=== PATIENT | female | born 1935 | race Caucasian/White ===

== ENCOUNTER 2017-02-26 14:16 | Inpatient (IN) | payer MEDICARE ==
[~2017-02-26] VITALS: Ht 167.6 cm; Wt 63.6 kg
[~2017-02-26 14:16] MED LIST: CLON0.5T4 PO; CLOP75TA35 PO; FENT-92 TD; FLUT16SP26 NAS; GABA600T2 PO; LISI2.5T2 PO; MONT10TA24 PO; NEPA1.7D LEFTEYE; OMEG1CAP2 PO; OMEP40CA37 PO; OXYC-145 PO; SIMV20TA5 PO
[2017-02-26 14:54] LABS: BASOPHILS % (AUTO) 0.7 % (0-1); EOSINOPHILS # (AUTO) 0.2 X10'3 (0-0.9); EOSINOPHILS % (AUTO) 4.1 % (0-6); HEMATOCRIT 30.7 % (35.0-45.0); LYMPHOCYTES # (AUTO) 1.3 X10'3 (1.1-4.8); LYMPHOCYTES % (AUTO) 22.3 % (21-51); MEAN CORPUSCULAR HEMOGLOBIN 30.3 PG (27.0-31.0); MEAN CORPUSCULAR HGB CONC 32.7 % (33.0-36.5); MEAN CORPUSCULAR VOLUME 92.5 FL (78-98); MEAN PLATELET VOLUME 6.9 FL (7.4-10.4); MONOCYTES # (AUTO) 0.5 X10'3 (0-0.9); MONOCYTES % (AUTO) 8.9 % (2-12); NEUTROPHILS # (AUTO) 3.8 X10'3 (1.8-7.7); PLATELET COUNT 362 X10'3 (140-440); RED BLOOD COUNT 3.32 X10'6 (4.20-5.60); RED CELL DISTRIBUTION WIDTH 15.1 % (11.5-14.5)
[2017-02-26 15:11] LABS: INR 0.9 INR; PARTIAL THROMBOPLASTIN TIME 25 SECONDS (22-32); PROTHROMBIN TIME 9.7 SECONDS (9.0-12.0)
[2017-02-26 15:19] LABS: ALANINE AMINOTRANSFERASE 25 U/L (12-78); ALBUMIN 3.7 G/DL (3.4-5.0); ALKALINE PHOSPHATASE 83 IU/L (46-116); ANION GAP 9 (8-16); ASPARTATE AMINO TRANSFERASE 16 U/L (10-37); BILIRUBIN,TOTAL 0.2 MG/DL (0.1-1.0); BLOOD UREA NITROGEN 11 MG/DL (7-18); BUN/CREATININE RATIO 10.9 (6.6-38.0); CALCIUM 9.3 MG/DL (8.5-10.1); CHLORIDE 104 MMOL/L (99-107); CREATININE 1.01 MG/DL (0.40-0.90); GLUCOSE 122 MG/DL (70-104); POTASSIUM 4.2 MMOL/L (3.5-5.1); SODIUM 141 MMOL/L (135-145); TOTAL CARBON DIOXIDE 28.3 MMOL/L (24-32); TOTAL PROTEIN 7.4 G/DL (6.4-8.2); eGFR 52 ML/MIN
[2017-02-26] MEDS ORDERED: aspirin 81mg tab.chew PO ONE (15:30)
[2017-02-26] MEDS ORDERED: ipratropium/albuterol 3ml nebule NEB ONE (15:30)
[2017-02-26] MEDS ORDERED: dexamethasone 4mg tablet PO ONE (15:30)
[2017-02-26] MEDS ORDERED: nitroGLYCERIN 0.4mg SUBLingual tab SL PRN ×2 (15:30→18:45)
[2017-02-26] MEDS ORDERED: mag hydrox/Alum hydrox/simeth 30ml oral suspension PO PRN (16:10)
[2017-02-26] MEDS ORDERED: ondansetron/PF 4mg/2ml inj IV PRN (16:10)
[2017-02-26] MEDS ORDERED: magnesium hydroxide 30ml (MOM) UD suspension PO PRN (16:10)
[2017-02-26] MEDS ORDERED: acetaminophen 325mg tablet PO PRN (16:10)
[2017-02-26] MEDS ORDERED: benzonatate 100mg capsule PO PRN (16:15)
[2017-02-26] MEDS: levoFLOXACIN-Levaquin 750MG/D5 150 ML IV SCH (17:38)
[2017-02-26] MEDS ORDERED: clonazePAM 0.5mg tablet PO PRN (18:20)
[2017-02-26] MEDS ORDERED: enoxaparin 60mg/0.6ml syringe SUBCUT ONE (18:20)
[2017-02-26 18:25] VITALS: BP 121/68
[2017-02-26] MEDS ORDERED: metoprolol tartrate 1mg/ml inj IV PRN (18:45)
[2017-02-26 19:54] LABS: CLARITY,URINE Clear (Clear); COLOR,URINE Yellow (Yellow); GLUCOSE, URINE Negative (Neg); KETONES,URINE Negative (Neg); LEUKOCYTE ESTERASE ,URINE Negative (Neg); NITRITES, URINE Negative (Neg); OCCULT BLOOD,URINE Negative (Neg); PH,URINE 5.5 (4.8-8.0); PROTEIN,URINE Negative (Neg); UROBILINOGEN,URINE 0.2 E.U/dL (0.2-1.0)
[2017-02-26 19:57] LABS: UA COLLECTION TYPE VOIDED
[2017-02-26] MEDS ORDERED: diphenhydrAMINE 25mg capsule PO PRN (20:00)
[2017-02-26] MEDS ORDERED: heparin, porcine 5000 units/ml vial SQ SCH (20:00)
[2017-02-26] MEDS: gabapentin 300mg capsule PO SCH (20:41)
[2017-02-26] MEDS: methylPREDNISolone sod succ 125mg/2ml vial IV SCH (20:42)
[2017-02-26] MEDS ORDERED: atorvastatin 10mg tablet PO SCH (21:00)
[2017-02-26 22:00] VITALS: BP 118/57
[2017-02-26] MEDS: normal saline 1000ml 1,000 ML IV SCH (23:10)
[2017-02-27] VITALS (11 sets, daily range): BP systolic 114–162; BP diastolic 51–93
[2017-02-27] MEDS: methylPREDNISolone sod succ 125mg/2ml vial IV SCH ×2 (01:53→07:18)
[2017-02-27 02:34] LABS: BASOPHILS % (AUTO) 0.6 % (0-1); EOSINOPHILS % (AUTO) 0.7 % (0-6); HEMATOCRIT 29.5 % (35.0-45.0); HEMOGLOBIN 9.6 g/dl (12.0-16.0); LYMPHOCYTES % (AUTO) 26.3 % (21-51); MEAN CORPUSCULAR HEMOGLOBIN 30.3 PG (27.0-31.0); MEAN CORPUSCULAR HGB CONC 32.5 % (33.0-36.5); MEAN CORPUSCULAR VOLUME 93.1 FL (78-98); MEAN PLATELET VOLUME 7.2 FL (7.4-10.4); MONOCYTES % (AUTO) 0.8 % (2-12); NEUTROPHILS # (AUTO) 2.7 X10'3 (1.8-7.7); NEUTROPHILS % (AUTO) 71.6 % (42-75); PLATELET COUNT 315 X10'3 (140-440); RED BLOOD COUNT 3.17 X10'6 (4.20-5.60); RED CELL DISTRIBUTION WIDTH 14.8 % (11.5-14.5); WHITE BLOOD COUNT 3.8 X10'3 (4.5-11.0)
[2017-02-27 02:54] LABS: ALBUMIN 3.3 G/DL (3.4-5.0); ANION GAP 7 (8-16); BLOOD UREA NITROGEN 11 MG/DL (7-18); BUN/CREATININE RATIO 12.6 (6.6-38.0); CALCIUM 8.6 MG/DL (8.5-10.1); CHLORIDE 104 MMOL/L (99-107); CREATININE 0.87 MG/DL (0.40-0.90); GLUCOSE 161 MG/DL (70-104); POTASSIUM 4.4 MMOL/L (3.5-5.1); SODIUM 138 MMOL/L (135-145); TOTAL CARBON DIOXIDE 27.5 MMOL/L (24-32); eGFR 62 ML/MIN
[2017-02-27] MEDS ORDERED: aminophylline 250mg/10ml inj. IV PRN (07:00)
[2017-02-27] MEDS ORDERED: regadenoson 0.4mg/5ml syringe IV ONE ×2 (07:00→10:09)
[2017-02-27] MEDS: montelukast 10mg tablet PO SCH ×2 (07:18→07:41)
[2017-02-27] MEDS: clopidogrel 75mg tablet PO SCH ×2 (07:18→07:40)
[2017-02-27] MEDS: levoFLOXACIN-Levaquin 750MG/D5 150 ML IV SCH (07:19)
[2017-02-27] MEDS: gabapentin 300mg capsule PO SCH (07:19)
[2017-02-27] MEDS ORDERED: OMEGA PO SCH (08:00)
[2017-02-27] MEDS ORDERED: fluticasone nasal spray 16GM bottle NS SCH (08:00)
[2017-02-27] MEDS ORDERED: NEPAFENAC LEFTEYE SCH (08:00)
[2017-02-27] MEDS ORDERED: pantoprazole 40mg Tablet.DR PO SCH (08:00)
[2017-02-27] MEDS ORDERED: FATTY ACIDS PO SCH (08:00)
[2017-02-27] MEDS ORDERED: FISH OIL PO SCH (08:00)
[2017-02-27] MEDS ORDERED: lisinopril 2.5mg tablet PO SCH (08:00)
[2017-02-27] MEDS ORDERED: aminophylline inj. 10 ML IV ONE (10:09)
[2017-02-27] MEDS ORDERED: morphine 5 MG/ML injection IV PRN (10:40)
[2017-02-27] MEDS ORDERED: iohexol 300mg/ml 100ml inj. ONE (11:08)
[2017-02-27] MEDS: normal saline 1000ml 1,000 ML IV SCH (11:58)
[2017-02-28] MEDS ORDERED: FENTANYL 75 MCG TD SCH (08:00)
[2017-02-28] MEDS ORDERED: fentaNYL 75 MCG/hour patch.TD72 TD SCH (08:00)
[2017-03-01 11:13] LABS: AFP,SERUM, TUMOR MARKER 2.8 ng/mL (0.0-8.3); CARCINOEMBRYONIC ANTIGEN 6.7 ng/mL (0.0-4.7)
== END 2017-02-27 14:14 | disposition home or self-care (01) | DRG 191 ==
LOC: ER 14:16 → ED HOLD 16:06 → ORTHO 4S 18:15
PROVIDERS: ADMIT Family Medicine; ATTEND Family Medicine
PROC: 4A02XM4 Measurement of Cardiac Total Activity, External Approach (ICD-10-PCS; principal; 2017-02-27)
PROC: 3E073KZ Introduction of Other Diagnostic Substance into Coronary Artery, Percutaneous Approach (ICD-10-PCS; 2017-02-27)
PROC: BW201ZZ Computerized Tomography (CT Scan) of Abdomen using Low Osmolar Contrast (ICD-10-PCS; 2017-02-27)
DX: J44.1 Chronic obstructive pulmonary disease with (acute) exacerbation (principal); M48.55XA Collapsed vertebra, not elsewhere classified, thoracolumbar region, initial encounter for fracture; M41.9 Scoliosis, unspecified; Z99.81 Dependence on supplemental oxygen; K76.89 Other specified diseases of liver; E78.00 Pure hypercholesterolemia, unspecified; E78.5 Hyperlipidemia, unspecified; I10 Essential (primary) hypertension; I25.10 Atherosclerotic heart disease of native coronary artery without angina pectoris; J01.90 Acute sinusitis, unspecified; A08.4 Viral intestinal infection, unspecified; D64.9 Anemia, unspecified; K21.9 Gastro-esophageal reflux disease without esophagitis; F32.9 Major depressive disorder, single episode, unspecified; F41.9 Anxiety disorder, unspecified; K57.90 Diverticulosis of intestine, part unspecified, without perforation or abscess without bleeding; M47.816 Spondylosis without myelopathy or radiculopathy, lumbar region; F17.210 Nicotine dependence, cigarettes, uncomplicated; Z90.710 Acquired absence of both cervix and uterus; Z95.5 Presence of coronary angioplasty implant and graft; Z88.0 Allergy status to penicillin; Z88.5 Allergy status to narcotic agent; Z88.8 Allergy status to other drugs, medicaments and biological substances; Z79.899 Other long term (current) drug therapy
CPT/HCPCS: 36415; 71045; 71250; 74170; 78452; 80048; 80053; 81003; 82103; 82378; 84484; 85025; 85610; 85730; 87070; 87502; 87503; 93017; 93306; 94640; 94760; 99285; A9500; J0280; J1650; J1956; J2270; J2930; J7030; J8540; Q0163; Q9967

== ENCOUNTER 2017-04-02 15:54 | Inpatient (IN) | payer MEDICARE ==
[~2017-04-02] VITALS: Ht 165.1 cm; Wt 65.9 kg
[~2017-04-02 15:54] MED LIST changes: -CLOP75TA35 PO; -MONT10TA24 PO; -OXYC-145 PO
[2017-04-02] MEDS ORDERED: levoFLOXACIN-Levaquin 750MG/D5 150 ML IV ONE (16:10)
[2017-04-02] MEDS ORDERED: normal saline 1000ml 1,000 ML IV ONE ×2 (16:25→16:30)
[2017-04-02 16:37] LABS: BASOPHILS % (AUTO) 0.4 % (0-1); EOSINOPHILS # (AUTO) 0.1 X10'3 (0-0.9); EOSINOPHILS % (AUTO) 1.8 % (0-6); HEMATOCRIT 31.7 % (35.0-45.0); HEMOGLOBIN 10.5 g/dl (12.0-16.0); LYMPHOCYTES # (AUTO) 1.2 X10'3 (1.1-4.8); LYMPHOCYTES % (AUTO) 15.4 % (21-51); MEAN CORPUSCULAR HEMOGLOBIN 28.8 PG (27.0-31.0); MEAN CORPUSCULAR HGB CONC 33.1 % (33.0-36.5); MEAN CORPUSCULAR VOLUME 87.1 FL (78-98); MEAN PLATELET VOLUME 6.5 FL (7.4-10.4); MONOCYTES # (AUTO) 0.7 X10'3 (0-0.9); MONOCYTES % (AUTO) 8.3 % (2-12); NEUTROPHILS % (AUTO) 74.1 % (42-75); PLATELET COUNT 475 X10'3 (140-440); RED BLOOD COUNT 3.64 X10'6 (4.20-5.60); RED CELL DISTRIBUTION WIDTH 15.1 % (11.5-14.5); WHITE BLOOD COUNT 8.1 X10'3 (4.5-11.0)
[2017-04-02] MEDS ORDERED: ondansetron/PF 4mg/2ml inj IV ONE (16:45)
[2017-04-02 16:48] LABS: INR 1.4 INR; PARTIAL THROMBOPLASTIN TIME 35 SECONDS (22-32); PROTHROMBIN TIME 14.3 SECONDS (9.0-12.0)
[2017-04-02 17:00] LABS: ALANINE AMINOTRANSFERASE 26 U/L (12-78); ALBUMIN 3.1 G/DL (3.4-5.0); ALBUMIN/GLOBULIN RATIO 0.7 (1.1-1.5); ALKALINE PHOSPHATASE 84 IU/L (46-116); ANION GAP 9 (8-16); ASPARTATE AMINO TRANSFERASE 28 U/L (10-37); BILIRUBIN,TOTAL 0.2 MG/DL (0.1-1.0); BLOOD UREA NITROGEN 11 MG/DL (7-18); BUN/CREATININE RATIO 12.6 (6.6-38.0); CALCIUM 8.8 MG/DL (8.5-10.1); CHLORIDE 100 MMOL/L (99-107); CREATININE 0.87 MG/DL (0.40-0.90); GLUCOSE 121 MG/DL (70-104); MAGNESIUM 1.9 MG/DL (1.5-2.4); PHOSPHORUS 3.4 MG/DL (2.3-4.5); POTASSIUM 3.9 MMOL/L (3.5-5.1); SODIUM 141 MMOL/L (135-145); TOTAL PROTEIN 7.6 G/DL (6.4-8.2); eGFR 62 ML/MIN
[2017-04-02] MEDS ORDERED: aspirin 325mg tablet PO ONE (17:00)
[2017-04-02 17:08] LABS: CLARITY,URINE SLIGHTLY CLOUDY (Clear); COLOR,URINE YELLOW (Yellow); GLUCOSE, URINE NEGATIVE (Neg); KETONES,URINE TRACE mg/dl (Neg); LEUKOCYTE ESTERASE ,URINE NEGATIVE (Neg); NITRITES, URINE NEGATIVE (Neg); OCCULT BLOOD,URINE TRACE-INTACT (Neg); PH,URINE 5.5 (4.8-8.0); PROTEIN,URINE 100 mg/dl (Neg); UROBILINOGEN,URINE 0.2 E.U/dL (0.2-1.0)
[2017-04-02 17:10] LABS: UA COLLECTION TYPE STRAIGHT CATH
[2017-04-02 17:15] LABS: BACTERIA,URINE NONE SEEN /HPF (Neg); HYALINE CASTS 0-3 /LPF (NEGATIVE); RBC,URINE 0-2 /HPF (0-2); SQUAMOUS EPITHELIAL CELL,UR FEW /LPF (FEW); WBC,URINE 0-4 /HPF (0-4)
[2017-04-02] MEDS ORDERED: fentaNYL/PF 50MCG/1 ML 2ML syringe IV ONE (17:55)
[2017-04-02] MEDS ORDERED: acetaminophen 325mg tablet PO ONE (17:55)
[2017-04-02] MEDS ORDERED: ipratropium/albuterol 3ml nebule NEB ONE (18:05)
[2017-04-02] MEDS ORDERED: furosemide 10 MG/1 ML 10ml inj IV ONE (18:25)
[2017-04-02] MEDS ORDERED: HYDR-3972 PO (18:30)
[2017-04-02] MEDS ORDERED: enoxaparin 60mg/0.6ml syringe SUBCUT ONE (18:40)
[2017-04-02] MEDS ORDERED: enoxaparin 100mg/ml syringe SUBCUT ONE (18:40)
[2017-04-02] MEDS ORDERED: oseltamivir phos 75mg capsule PO ONE (19:15)
[2017-04-02] MEDS ORDERED: ondansetron/PF 4mg/2ml inj IV PRN (19:30)
[2017-04-02] MEDS ORDERED: magnesium hydroxide 30ml (MOM) UD suspension PO PRN (19:30)
[2017-04-02] MEDS ORDERED: morphine 2 MG/ML inj. syringe IV PRN (19:30)
[2017-04-02] MEDS ORDERED: potassium Cl 40MEQ/NS 500ml 500 ML IV PRN ×2 (19:30)
[2017-04-02] MEDS ORDERED: HYDROcodone/acetaminophen 5mg/325mg tablet PO PRN (19:30)
[2017-04-02] MEDS ORDERED: magnesium 4gm in 100ml NS 100 ML IV PRN (19:30)
[2017-04-02] MEDS ORDERED: mag hydrox/Alum hydrox/simeth 30ml oral suspension PO PRN (19:30)
[2017-04-02] MEDS ORDERED: potassium Cl 20 mEq SR tablet PO PRN ×2 (19:30)
[2017-04-02] MEDS ORDERED: acetaminophen 325mg tablet PO PRN (19:30)
[2017-04-02] MEDS ORDERED: magnesium 2GM in 50ml NS 50 ML IV PRN (19:30)
[2017-04-02] MEDS: oseltamivir phos 75mg capsule PO SCH (20:00)
[2017-04-02] MEDS ORDERED: heparin, porcine 5000 units/ml vial SQ SCH (20:00)
[2017-04-02] MEDS: normal saline 1000ml 1,000 ML IV SCH (20:18)
[2017-04-02] MEDS ORDERED: temazepam 15mg capsule PO PRN (21:00)
[2017-04-02] MEDS ORDERED: non-formulary drug (Simvastatin* (Zocor*) 20 MG) PO SCH (21:00)
[2017-04-02] MEDS: ipratropium/albuterol 3ml nebule NEB SCH (22:58)
[2017-04-02] MEDS: atorvastatin 10mg tablet PO SCH (23:34)
[2017-04-02] MEDS: morphine 2 MG/ML inj. syringe IV PRN (23:36)
[2017-04-03] MEDS: normal saline 1000ml 1,000 ML IV SCH (01:18)
[2017-04-03] MEDS: ipratropium/albuterol 3ml nebule NEB SCH ×5 (02:24→19:19)
[2017-04-03] MEDS ORDERED: LORazepam 0.5 MG tablet PO ONE (03:20)
[2017-04-03 05:08] LABS: BASOPHILS % (AUTO) 0.2 % (0-1); EOSINOPHILS # (AUTO) 0.1 X10'3 (0-0.9); EOSINOPHILS % (AUTO) 1.1 % (0-6); HEMATOCRIT 31.3 % (35.0-45.0); HEMOGLOBIN 10.3 g/dl (12.0-16.0); LYMPHOCYTES # (AUTO) 0.8 X10'3 (1.1-4.8); LYMPHOCYTES % (AUTO) 8.2 % (21-51); MEAN CORPUSCULAR HEMOGLOBIN 28.7 PG (27.0-31.0); MEAN CORPUSCULAR HGB CONC 32.9 % (33.0-36.5); MEAN CORPUSCULAR VOLUME 87.3 FL (78-98); MEAN PLATELET VOLUME 7.1 FL (7.4-10.4); MONOCYTES # (AUTO) 0.7 X10'3 (0-0.9); NEUTROPHILS # (AUTO) 8.5 X10'3 (1.8-7.7); NEUTROPHILS % (AUTO) 83.5 % (42-75); PLATELET COUNT 422 X10'3 (140-440); RED BLOOD COUNT 3.58 X10'6 (4.20-5.60); RED CELL DISTRIBUTION WIDTH 14.9 % (11.5-14.5); WHITE BLOOD COUNT 10.1 X10'3 (4.5-11.0)
[2017-04-03 05:27] LABS: ALANINE AMINOTRANSFERASE 18 U/L (12-78); ALBUMIN 2.8 G/DL (3.4-5.0); ALBUMIN/GLOBULIN RATIO 0.6 (1.1-1.5); ALKALINE PHOSPHATASE 81 IU/L (46-116); ANION GAP 10 (8-16); ASPARTATE AMINO TRANSFERASE 26 U/L (10-37); BILIRUBIN,TOTAL 0.2 MG/DL (0.1-1.0); BLOOD UREA NITROGEN 10 MG/DL (7-18); BUN/CREATININE RATIO 13.7 (6.6-38.0); CALCIUM 8.6 MG/DL (8.5-10.1); CHLORIDE 99 MMOL/L (99-107); CREATININE 0.73 MG/DL (0.40-0.90); GLUCOSE 124 MG/DL (70-104); MAGNESIUM 1.4 MG/DL (1.5-2.4); POTASSIUM 3.7 MMOL/L (3.5-5.1); SODIUM 140 MMOL/L (135-145); TOTAL CARBON DIOXIDE 30.8 MMOL/L (24-32); TOTAL PROTEIN 7.3 G/DL (6.4-8.2); eGFR 76 ML/MIN
[2017-04-03 06:00] VITALS: BP 172/76
[2017-04-03] MEDS ORDERED: fentaNYL 75 MCG/hour patch.TD72 TD SCH (07:30)
[2017-04-03] MEDS: oseltamivir phos 75mg capsule PO SCH ×2 (07:31→20:12)
[2017-04-03] MEDS: lisinopril 5mg tablet PO SCH (07:31)
[2017-04-03] MEDS: pantoprazole 40mg Tablet.DR PO SCH (07:32)
[2017-04-03] MEDS: K and/or MAG REPLACEMENT MC SCH (07:36)
[2017-04-03] MEDS ORDERED: enoxaparin 60mg/0.6ml syringe SUBCUT SCH (08:00)
[2017-04-03] MEDS ORDERED: azithromycin/NS 500mg/250ml 250 ML IV SCH (08:00)
[2017-04-03] MEDS: levoFLOXACIN-Levaquin 500mg/D5 100 ML IV SCH (09:10)
[2017-04-03] MEDS: magnesium Cl slow-release 64mg tablet PO PRN ×2 (09:10→20:11)
[2017-04-03 11:00] VITALS: BP 126/50
[2017-04-03] MEDS ORDERED: temazepam 15mg capsule PO PRN (11:55)
[2017-04-03 15:00] VITALS: BP 134/64
[2017-04-03] MEDS: aspirin 81mg tablet.DR PO SCH (16:25)
[2017-04-03] MEDS: HYDROcodone/acetaminophen 10/325mg tab PO PRN (16:26)
[2017-04-03] MEDS: lactobacillus rhamnosus 10,000 MMU CELLS/CAPSULE PO SCH (16:32)
[2017-04-03 19:00] VITALS: BP 118/97
[2017-04-03] MEDS: atorvastatin 10mg tablet PO SCH (20:12)
[2017-04-03] MEDS: metoprolol tartrate 12.5mg (1/2 tablet) PO SCH (20:12)
[2017-04-03] MEDS ORDERED: LORazepam 0.5 MG tablet PO PRN (21:00)
[2017-04-03 23:00] VITALS: BP 121/44
[2017-04-04] MEDS: ipratropium/albuterol 3ml nebule NEB SCH ×7 (01:17→23:43)
[2017-04-04 03:00] VITALS: BP 136/87
[2017-04-04] MEDS: HYDROcodone/acetaminophen 10/325mg tab PO PRN ×5 (03:00→21:36)
[2017-04-04 05:09] LABS: BASOPHILS % (AUTO) 0.1 % (0-1); EOSINOPHILS % (AUTO) 1.5 % (0-6); HEMATOCRIT 25.4 % (35.0-45.0); HEMOGLOBIN 8.4 g/dl (12.0-16.0); LYMPHOCYTES # (AUTO) 1.1 X10'3 (1.1-4.8); LYMPHOCYTES % (AUTO) 37.5 % (21-51); MEAN CORPUSCULAR HEMOGLOBIN 28.4 PG (27.0-31.0); MEAN CORPUSCULAR HGB CONC 32.9 % (33.0-36.5); MEAN CORPUSCULAR VOLUME 86.3 FL (78-98); MEAN PLATELET VOLUME 6.7 FL (7.4-10.4); MONOCYTES # (AUTO) 0.4 X10'3 (0-0.9); MONOCYTES % (AUTO) 11.9 % (2-12); NEUTROPHILS # (AUTO) 1.5 X10'3 (1.8-7.7); PLATELET COUNT 376 X10'3 (140-440); RED BLOOD COUNT 2.94 X10'6 (4.20-5.60); RED CELL DISTRIBUTION WIDTH 15.2 % (11.5-14.5)
[2017-04-04 05:26] LABS: ALANINE AMINOTRANSFERASE 13 U/L (12-78); ALBUMIN 2.2 G/DL (3.4-5.0); ALBUMIN/GLOBULIN RATIO 0.6 (1.1-1.5); ALKALINE PHOSPHATASE 62 IU/L (46-116); ANION GAP 7 (8-16); ASPARTATE AMINO TRANSFERASE 20 U/L (10-37); BILIRUBIN,TOTAL 0.2 MG/DL (0.1-1.0); BLOOD UREA NITROGEN 10 MG/DL (7-18); BUN/CREATININE RATIO 14.3 (6.6-38.0); CALCIUM 8.2 MG/DL (8.5-10.1); CHLORIDE 102 MMOL/L (99-107); GLUCOSE 110 MG/DL (70-104); MAGNESIUM 1.7 MG/DL (1.5-2.4); POTASSIUM 3.7 MMOL/L (3.5-5.1); SODIUM 140 MMOL/L (135-145); TOTAL CARBON DIOXIDE 31.1 MMOL/L (24-32); TOTAL PROTEIN 5.9 G/DL (6.4-8.2); eGFR 80 ML/MIN
[2017-04-04 07:00] VITALS: BP 117/37
[2017-04-04] MEDS: K and/or MAG REPLACEMENT MC SCH (08:00)
[2017-04-04] MEDS ORDERED: FENTANYL 75 MCG TD SCH (08:00)
[2017-04-04] MEDS: lisinopril 5mg tablet PO SCH (08:50)
[2017-04-04] MEDS: enoxaparin 40mg/0.4ml syringe SUBCUT SCH (08:52)
[2017-04-04] MEDS: pantoprazole 40mg Tablet.DR PO SCH (08:53)
[2017-04-04] MEDS: lactobacillus rhamnosus 10,000 MMU CELLS/CAPSULE PO SCH ×2 (08:53→16:35)
[2017-04-04] MEDS: levoFLOXACIN-Levaquin 500mg/D5 100 ML IV SCH (08:53)
[2017-04-04] MEDS: metoprolol tartrate 12.5mg (1/2 tablet) PO SCH ×2 (08:53→20:03)
[2017-04-04] MEDS: aspirin 81mg tablet.DR PO SCH (08:55)
[2017-04-04] MEDS: oseltamivir phos 75mg capsule PO SCH ×2 (09:18→20:03)
[2017-04-04] MEDS: LORazepam 0.5 MG tablet PO PRN ×2 (11:03→18:39)
[2017-04-04 11:35] VITALS: BP 131/78
[2017-04-04] MEDS ORDERED: fentaNYL 75 MCG/hour patch.TD72 TD SCH (19:00)
[2017-04-04 20:00] VITALS: BP 143/69
[2017-04-04] MEDS: atorvastatin 10mg tablet PO SCH (20:03)
[2017-04-05] VITALS: BP 139/75
[2017-04-05] MEDS: HYDROcodone/acetaminophen 10/325mg tab PO PRN ×2 (01:34→05:19)
[2017-04-05] MEDS: LORazepam 0.5 MG tablet PO PRN (02:53)
[2017-04-05] MEDS: ipratropium/albuterol 3ml nebule NEB SCH ×4 (03:08→14:19)
[2017-04-05] MEDS: morphine 2 MG/ML inj. syringe IV PRN ×2 (03:46→08:06)
[2017-04-05 05:43] LABS: BASOPHILS % (AUTO) 0.6 % (0-1); EOSINOPHILS # (AUTO) 0.1 X10'3 (0-0.9); EOSINOPHILS % (AUTO) 2.1 % (0-6); HEMATOCRIT 25.3 % (35.0-45.0); HEMOGLOBIN 8.3 g/dl (12.0-16.0); LYMPHOCYTES # (AUTO) 1.4 X10'3 (1.1-4.8); LYMPHOCYTES % (AUTO) 36.9 % (21-51); MEAN CORPUSCULAR HEMOGLOBIN 28.1 PG (27.0-31.0); MEAN CORPUSCULAR HGB CONC 32.8 % (33.0-36.5); MEAN CORPUSCULAR VOLUME 85.7 FL (78-98); MEAN PLATELET VOLUME 6.8 FL (7.4-10.4); MONOCYTES # (AUTO) 0.5 X10'3 (0-0.9); MONOCYTES % (AUTO) 12.6 % (2-12); NEUTROPHILS # (AUTO) 1.8 X10'3 (1.8-7.7); NEUTROPHILS % (AUTO) 47.8 % (42-75); PLATELET COUNT 409 X10'3 (140-440); RED BLOOD COUNT 2.95 X10'6 (4.20-5.60); RED CELL DISTRIBUTION WIDTH 15.1 % (11.5-14.5); WHITE BLOOD COUNT 3.9 X10'3 (4.5-11.0)
[2017-04-05 06:30] LABS: ALANINE AMINOTRANSFERASE 15 U/L (12-78); ALBUMIN 2.4 G/DL (3.4-5.0); ALBUMIN/GLOBULIN RATIO 0.6 (1.1-1.5); ALKALINE PHOSPHATASE 65 IU/L (46-116); ANION GAP 7 (8-16); ASPARTATE AMINO TRANSFERASE 24 U/L (10-37); BILIRUBIN,TOTAL 0.2 MG/DL (0.1-1.0); BLOOD UREA NITROGEN 8 MG/DL (7-18); BUN/CREATININE RATIO 11.6 (6.6-38.0); CALCIUM 8.4 MG/DL (8.5-10.1); CHLORIDE 99 MMOL/L (99-107); CREATININE 0.69 MG/DL (0.40-0.90); GLUCOSE 116 MG/DL (70-104); MAGNESIUM 1.6 MG/DL (1.5-2.4); POTASSIUM 3.6 MMOL/L (3.5-5.1); SODIUM 138 MMOL/L (135-145); TOTAL CARBON DIOXIDE 31.9 MMOL/L (24-32); TOTAL PROTEIN 6.1 G/DL (6.4-8.2); eGFR 81 ML/MIN
[2017-04-05 07:00] VITALS: BP 147/81
[2017-04-05] MEDS: lactobacillus rhamnosus 10,000 MMU CELLS/CAPSULE PO SCH (08:00)
[2017-04-05] MEDS: lisinopril 5mg tablet PO SCH (08:00)
[2017-04-05] MEDS: aspirin 81mg tablet.DR PO SCH (08:00)
[2017-04-05] MEDS: pantoprazole 40mg Tablet.DR PO SCH (08:00)
[2017-04-05] MEDS: levoFLOXACIN-Levaquin 500mg/D5 100 ML IV SCH (08:00)
[2017-04-05] MEDS: magnesium Cl slow-release 64mg tablet PO PRN (08:00)
[2017-04-05] MEDS: oseltamivir phos 75mg capsule PO SCH (08:00)
[2017-04-05] MEDS: metoprolol tartrate 12.5mg (1/2 tablet) PO SCH (08:00)
[2017-04-05] MEDS: enoxaparin 40mg/0.4ml syringe SUBCUT SCH (08:01)
[2017-04-05] MEDS: K and/or MAG REPLACEMENT MC SCH (08:24)
[2017-04-05] MEDS ORDERED: TAM75C PO (13:26)
[2017-04-05] MEDS ORDERED: ASPI-1071 PO (13:26)
[2017-04-05] MEDS ORDERED: METO25TA6 PO (13:26)
[2017-04-05] MEDS ORDERED: LEVO500T2 PO (13:26)
== END 2017-04-05 15:15 | disposition home or self-care (01) | DRG 871 ==
LOC: ER 15:54 → ED HOLD 19:29 → PCU 3S 21:10 → MED 3N 04-04 09:30
PROVIDERS: ADMIT Internal Medicine; ATTEND Internal Medicine
DX: A41.9 Sepsis, unspecified organism (principal); J96.01 Acute respiratory failure with hypoxia; D68.9 Coagulation defect, unspecified; D69.6 Thrombocytopenia, unspecified; I71.2 Thoracic aortic aneurysm, without rupture; G62.9 Polyneuropathy, unspecified; J44.0 Chronic obstructive pulmonary disease with (acute) lower respiratory infection; J44.1 Chronic obstructive pulmonary disease with (acute) exacerbation; I50.9 Heart failure, unspecified; I11.0 Hypertensive heart disease with heart failure; D64.9 Anemia, unspecified; E78.5 Hyperlipidemia, unspecified; G47.00 Insomnia, unspecified; G89.4 Chronic pain syndrome; J20.9 Acute bronchitis, unspecified; J09.X2 Influenza due to identified novel influenza A virus with other respiratory manifestations; I25.10 Atherosclerotic heart disease of native coronary artery without angina pectoris; M19.90 Unspecified osteoarthritis, unspecified site; K57.90 Diverticulosis of intestine, part unspecified, without perforation or abscess without bleeding; K21.9 Gastro-esophageal reflux disease without esophagitis; F32.9 Major depressive disorder, single episode, unspecified; F41.9 Anxiety disorder, unspecified; M54.9 Dorsalgia, unspecified; R16.0 Hepatomegaly, not elsewhere classified; I25.2 Old myocardial infarction; Z90.710 Acquired absence of both cervix and uterus; Z95.5 Presence of coronary angioplasty implant and graft; Z88.0 Allergy status to penicillin; Z88.1 Allergy status to other antibiotic agents; Z88.6 Allergy status to analgesic agent; Z88.8 Allergy status to other drugs, medicaments and biological substances; Z79.899 Other long term (current) drug therapy; Z79.01 Long term (current) use of anticoagulants
CPT/HCPCS: 36415; 71045; 71250; 80053; 81001; 83605; 83735; 83880; 84100; 84145; 84484; 85025; 85610; 85730; 87040; 87070; 87502; 87503; 92616; 93005; 94640; 94668; 94760; 96365; 96366; 96375; 97116; 97162; 97530; 99285; A6258; J0456; J1650; J1940; J1956; J2270; J2405; J3010; J7030

== ENCOUNTER 2017-05-03 18:02 | Emergency (ER) | payer MEDICARE ==
[~2017-05-03] VITALS: Ht 165.1 cm; Wt 63.0 kg
[~2017-05-03 18:02] MED LIST changes: +ASPI-1071 PO; -CLON0.5T4 PO; -FLUT16SP26 NAS; -GABA600T2 PO; +HYDR-3972 PO; +LEVO500T2 PO; +METO25TA6 PO; -NEPA1.7D LEFTEYE; -OMEG1CAP2 PO; +TAM75C PO
[2017-05-03 19:10] LABS: BASOPHILS % (AUTO) 0.4 % (0-1); EOSINOPHILS # (AUTO) 0.2 X10'3 (0-0.9); EOSINOPHILS % (AUTO) 3.6 % (0-6); HEMOGLOBIN 8.6 g/dl (12.0-16.0); LYMPHOCYTES # (AUTO) 1.6 X10'3 (1.1-4.8); LYMPHOCYTES % (AUTO) 37.8 % (21-51); MEAN CORPUSCULAR HEMOGLOBIN 25.5 PG (27.0-31.0); MEAN CORPUSCULAR HGB CONC 31.7 % (33.0-36.5); MEAN CORPUSCULAR VOLUME 80.3 FL (78-98); MEAN PLATELET VOLUME 6.7 FL (7.4-10.4); MONOCYTES # (AUTO) 0.4 X10'3 (0-0.9); MONOCYTES % (AUTO) 10.1 % (2-12); NEUTROPHILS # (AUTO) 2.1 X10'3 (1.8-7.7); NEUTROPHILS % (AUTO) 48.1 % (42-75); PLATELET COUNT 364 X10'3 (140-440); RED BLOOD COUNT 3.36 X10'6 (4.20-5.60); WHITE BLOOD COUNT 4.3 X10'3 (4.5-11.0)
[2017-05-03 19:32] LABS: ALANINE AMINOTRANSFERASE 19 U/L (12-78); ALBUMIN 3.5 G/DL (3.4-5.0); ALBUMIN/GLOBULIN RATIO 0.9 (1.1-1.5); ALKALINE PHOSPHATASE 82 IU/L (46-116); ANION GAP 8 (8-16); ASPARTATE AMINO TRANSFERASE 17 U/L (10-37); BILIRUBIN,TOTAL 0.2 MG/DL (0.1-1.0); BLOOD UREA NITROGEN 10 MG/DL (7-18); BUN/CREATININE RATIO 11.1 (6.6-38.0); CALCIUM 8.7 MG/DL (8.5-10.1); CHLORIDE 101 MMOL/L (99-107); GLUCOSE 104 MG/DL (70-104); MAGNESIUM 1.9 MG/DL (1.5-2.4); POTASSIUM 3.8 MMOL/L (3.5-5.1); SODIUM 137 MMOL/L (135-145); TOTAL CARBON DIOXIDE 27.6 MMOL/L (24-32); TOTAL PROTEIN 7.3 G/DL (6.4-8.2); eGFR 60 ML/MIN
[2017-05-03 22:37] VITALS: BP 164/88
[2017-05-03] MEDS ORDERED: magnesium citrate 296ml oral solution PO ONE (23:10)
[2017-05-03] MEDS ORDERED: POLY17PO10 PO (23:18)
== END 2017-05-03 23:31 | disposition home or self-care (01) ==
LOC: ER 18:02
DX: K59.00 Constipation, unspecified (principal); R60.9 Edema, unspecified; M79.605 Pain in left leg; M79.604 Pain in right leg; I25.10 Atherosclerotic heart disease of native coronary artery without angina pectoris; I10 Essential (primary) hypertension; I25.2 Old myocardial infarction; J44.9 Chronic obstructive pulmonary disease, unspecified; K21.9 Gastro-esophageal reflux disease without esophagitis; G89.29 Other chronic pain; Z90.710 Acquired absence of both cervix and uterus; Z98.61 Coronary angioplasty status; Z88.0 Allergy status to penicillin; Z88.5 Allergy status to narcotic agent; Z88.8 Allergy status to other drugs, medicaments and biological substances; Z79.899 Other long term (current) drug therapy; Z79.82 Long term (current) use of aspirin
CPT/HCPCS: 36415; 71046; 80053; 83735; 83880; 85025; 93005; 99285

== ENCOUNTER 2018-03-05 15:04 | Emergency (ER) | payer MEDICARE ==
[~2018-03-05] VITALS: Ht 165.1 cm; Wt 59.0 kg
[~2018-03-05 15:04] MED LIST changes: -FENT-92 TD; +FENT1PAT11 TD; -LEVO500T2 PO
[2018-03-05 15:26] VITALS: BP 172/52
[2018-03-05] MEDS ORDERED: triamcinolone acetonide 40mg/ml inj IM ONE (16:10)
[2018-03-05] MEDS ORDERED: FLUC150T66 PO (16:24)
[2018-03-05] MEDS ORDERED: TRIA15CR61 TOP (16:24)
== END 2018-03-05 16:40 | disposition home or self-care (01) ==
LOC: ER 15:04
DX: R21 Rash and other nonspecific skin eruption (principal); I25.10 Atherosclerotic heart disease of native coronary artery without angina pectoris; I10 Essential (primary) hypertension; I25.2 Old myocardial infarction; J44.9 Chronic obstructive pulmonary disease, unspecified; K21.9 Gastro-esophageal reflux disease without esophagitis; G89.29 Other chronic pain; Z98.61 Coronary angioplasty status; Z90.710 Acquired absence of both cervix and uterus; Z98.890 Other specified postprocedural states; Z88.0 Allergy status to penicillin; Z88.5 Allergy status to narcotic agent; Z88.8 Allergy status to other drugs, medicaments and biological substances; Z79.82 Long term (current) use of aspirin; Z79.2 Long term (current) use of antibiotics; Z79.899 Other long term (current) drug therapy
CPT/HCPCS: 96372; 99283; J3301

== ENCOUNTER 2018-03-26 07:08 | Emergency (ER) | payer MEDICARE ==
[~2018-03-26] VITALS: Ht 167.6 cm; Wt 56.8 kg
[~2018-03-26 07:08] MED LIST changes: +FLUC150T66 PO; +TRIA15CR61 TOP
[2018-03-26] MEDS ORDERED: DOXYCYCLINE 100MG CAPSULE PO STA (07:47)
[2018-03-26] MEDS ORDERED: DOXY100C43 PO (07:47)
[2018-03-26] MEDS ORDERED: PRED20TA PO (07:47)
[2018-03-26] MEDS ORDERED: ALBU8HFA PO (07:47)
[2018-03-26] MEDS ORDERED: dexamethasone 4mg tablet PO ONE (07:50)
[2018-03-26 08:13] VITALS: BP 172/112
== END 2018-03-26 08:16 | disposition home or self-care (01) ==
LOC: ER 07:09
DX: J18.9 Pneumonia, unspecified organism (principal); J20.9 Acute bronchitis, unspecified; B34.9 Viral infection, unspecified; I25.10 Atherosclerotic heart disease of native coronary artery without angina pectoris; I10 Essential (primary) hypertension; I25.2 Old myocardial infarction; J44.9 Chronic obstructive pulmonary disease, unspecified; K21.9 Gastro-esophageal reflux disease without esophagitis; G89.29 Other chronic pain; Z98.61 Coronary angioplasty status; Z90.710 Acquired absence of both cervix and uterus; Z88.0 Allergy status to penicillin; Z88.5 Allergy status to narcotic agent; Z88.8 Allergy status to other drugs, medicaments and biological substances; Z79.82 Long term (current) use of aspirin; Z79.899 Other long term (current) drug therapy
CPT/HCPCS: 71046; 87070; 93005; 99284; J8540

== ENCOUNTER 2018-07-16 11:10 | Emergency (ER) | payer MEDICARE ==
[~2018-07-16] VITALS: Ht 167.6 cm; Wt 52.3 kg
[~2018-07-16 11:10] MED LIST changes: -FLUC150T66 PO; -TRIA15CR61 TOP
[2018-07-16 11:41] VITALS: BP 156/66
== END 2018-07-16 11:58 | disposition home or self-care (01) ==
LOC: ER 11:11
DX: K64.4 Residual hemorrhoidal skin tags (principal); I25.10 Atherosclerotic heart disease of native coronary artery without angina pectoris; I10 Essential (primary) hypertension; I25.2 Old myocardial infarction; J44.9 Chronic obstructive pulmonary disease, unspecified; K21.9 Gastro-esophageal reflux disease without esophagitis; G89.29 Other chronic pain; Z98.61 Coronary angioplasty status; Z90.710 Acquired absence of both cervix and uterus; Z98.890 Other specified postprocedural states; Z88.0 Allergy status to penicillin; Z88.5 Allergy status to narcotic agent; Z79.899 Other long term (current) drug therapy; Z88.8 Allergy status to other drugs, medicaments and biological substances
CPT/HCPCS: 99284

== ENCOUNTER 2018-09-18 19:12 | Emergency (ER) | payer MEDICARE ==
[~2018-09-18] VITALS: Ht 167.6 cm; Wt 50.0 kg
[~2018-09-18 19:12] MED LIST changes: +OMEP40CA13 PO; -OMEP40CA37 PO
[2018-09-18 19:22] VITALS: BP 140/74
[2018-09-18 21:38] LABS: BASOPHILS % (AUTO) 0.6 % (0-1); EOSINOPHILS # (AUTO) 0.1 X10'3 (0-0.9); EOSINOPHILS % (AUTO) 1.3 % (0-6); HEMATOCRIT 35.5 % (35.0-45.0); HEMOGLOBIN 11.3 g/dl (12.0-16.0); LYMPHOCYTES % (AUTO) 18.6 % (21-51); MEAN CORPUSCULAR HEMOGLOBIN 23.5 PG (27.0-31.0); MEAN CORPUSCULAR VOLUME 73.6 FL (78-98); MEAN PLATELET VOLUME 6.9 FL (7.4-10.4); MONOCYTES # (AUTO) 0.6 X10'3 (0-0.9); MONOCYTES % (AUTO) 11.6 % (2-12); NEUTROPHILS # (AUTO) 3.8 X10'3 (1.8-7.7); NEUTROPHILS % (AUTO) 67.9 % (42-75); PLATELET COUNT 328 X10'3 (140-440); RED BLOOD COUNT 4.82 X10'6 (4.20-5.60); RED CELL DISTRIBUTION WIDTH 16.4 % (11.5-14.5); WHITE BLOOD COUNT 5.5 X10'3 (4.5-11.0)
[2018-09-18 21:50] LABS: ALANINE AMINOTRANSFERASE 15 U/L (12-78); ALBUMIN 3.1 G/DL (3.4-5.0); ALBUMIN/GLOBULIN RATIO 0.8 (1.1-1.5); ALKALINE PHOSPHATASE 84 IU/L (46-116); ANION GAP 8 (8-16); ASPARTATE AMINO TRANSFERASE 11 U/L (10-37); BILIRUBIN,TOTAL 0.3 MG/DL (0.1-1.0); BLOOD UREA NITROGEN 6 MG/DL (7-18); BUN/CREATININE RATIO 7.2 (6.6-38.0); CALCIUM 9.6 MG/DL (8.5-10.1); CHLORIDE 102 MMOL/L (99-107); CREATININE 0.83 MG/DL (0.40-0.90); GLUCOSE 132 MG/DL (70-104); POTASSIUM 3.3 MMOL/L (3.5-5.1); SODIUM 139 MMOL/L (135-145); TOTAL CARBON DIOXIDE 29.5 MMOL/L (24-32); TOTAL PROTEIN 6.8 G/DL (6.4-8.2); eGFR 65 ML/MIN
[2018-09-18 22:38] LABS: CLARITY,URINE CLEAR (Clear); COLOR,URINE YELLOW (Yellow); GLUCOSE, URINE NEGATIVE (Neg); KETONES,URINE NEGATIVE (Neg); LEUKOCYTE ESTERASE ,URINE NEGATIVE (Neg); NITRITES, URINE NEGATIVE (Neg); OCCULT BLOOD,URINE NEGATIVE (Neg); PH,URINE 6.5 (4.8-8.0); PROTEIN,URINE NEGATIVE (Neg); UROBILINOGEN,URINE 0.2 E.U/dL (0.2-1.0)
[2018-09-18 22:40] LABS: UA COLLECTION TYPE CLN CATCH MIDSTREAM
[2018-09-18] MEDS ORDERED: CEPH250T PO (23:02)
[2018-09-18] MEDS ORDERED: cephalexin 250mg capsule PO ONE (23:05)
== END 2018-09-18 23:29 | disposition home or self-care (01) ==
LOC: ER 19:13
DX: L89.229 Pressure ulcer of left hip, unspecified stage (principal); L03.116 Cellulitis of left lower limb; I25.10 Atherosclerotic heart disease of native coronary artery without angina pectoris; I10 Essential (primary) hypertension; I25.2 Old myocardial infarction; J44.9 Chronic obstructive pulmonary disease, unspecified; K21.9 Gastro-esophageal reflux disease without esophagitis; G89.29 Other chronic pain; Z95.5 Presence of coronary angioplasty implant and graft; Z90.710 Acquired absence of both cervix and uterus; Z88.0 Allergy status to penicillin; Z88.1 Allergy status to other antibiotic agents; Z88.5 Allergy status to narcotic agent; Z79.82 Long term (current) use of aspirin; Z79.899 Other long term (current) drug therapy
CPT/HCPCS: 36415; 80053; 81003; 85025; 99283

== ENCOUNTER 2018-10-08 11:57 | Emergency (ER) | payer MEDICARE ==
[~2018-10-08] VITALS: Ht 172.7 cm; Wt 50.0 kg
[2018-10-08] MEDS ORDERED: fentaNYL/PF 50MCG/1 ML 2ML syringe IV ONE (13:25)
[2018-10-08] MEDS ORDERED: ondansetron/PF 4mg/2ml inj IV ONE (13:25)
[2018-10-08] MEDS ORDERED: normal saline 1000ML IV soln IVB ONE (13:25)
[2018-10-08 13:45] LABS: ALANINE AMINOTRANSFERASE 14 U/L (12-78); ALBUMIN 3.2 G/DL (3.4-5.0); ALKALINE PHOSPHATASE 82 IU/L (46-116); ANION GAP 8 (8-16); ASPARTATE AMINO TRANSFERASE 13 U/L (10-37); BILIRUBIN,TOTAL 0.3 MG/DL (0.1-1.0); BLOOD UREA NITROGEN 9 MG/DL (7-18); BUN/CREATININE RATIO 11.8 (6.6-38.0); CALCIUM 8.9 MG/DL (8.5-10.1); CHLORIDE 104 MMOL/L (99-107); CREATININE 0.76 MG/DL (0.40-0.90); GLUCOSE 142 MG/DL (70-104); POTASSIUM 3.6 MMOL/L (3.5-5.1); SODIUM 140 MMOL/L (135-145); TOTAL CARBON DIOXIDE 28.5 MMOL/L (24-32); TOTAL PROTEIN 6.5 G/DL (6.4-8.2); eGFR 73 ML/MIN
[2018-10-08 13:48] LABS: BASOPHILS % (AUTO) 0.6 % (0-1); EOSINOPHILS % (AUTO) 0.6 % (0-6); HEMATOCRIT 34.3 % (35.0-45.0); HEMOGLOBIN 10.9 g/dl (12.0-16.0); LYMPHOCYTES # (AUTO) 0.7 X10'3 (1.1-4.8); LYMPHOCYTES % (AUTO) 16.5 % (21-51); MEAN CORPUSCULAR HEMOGLOBIN 22.4 PG (27.0-31.0); MEAN CORPUSCULAR HGB CONC 31.7 g/dL (33.0-36.5); MEAN CORPUSCULAR VOLUME 70.7 FL (78-98); MEAN PLATELET VOLUME 7.2 FL (7.4-10.4); MONOCYTES # (AUTO) 0.4 X10'3 (0-0.9); NEUTROPHILS # (AUTO) 3.2 X10'3 (1.8-7.7); NEUTROPHILS % (AUTO) 72.3 % (42-75); PLATELET COUNT 271 X10'3 (140-440); RED BLOOD COUNT 4.86 X10'6 (4.20-5.60); RED CELL DISTRIBUTION WIDTH 16.3 % (11.5-14.5); WHITE BLOOD COUNT 4.5 X10'3 (4.5-11.0)
[2018-10-08 13:49] LABS: AMYLASE 33 U/L (25-115); LIPASE 57 U/L (73-393); TROPONIN I < 0.04 NG/ML (0.0-0.05)
[2018-10-08 14:18] LABS: CLARITY,URINE CLOUDY (Clear); COLOR,URINE YELLOW (Yellow); GLUCOSE, URINE NEGATIVE (Neg); KETONES,URINE TRACE mg/dl (Neg); LEUKOCYTE ESTERASE ,URINE LARGE (Neg); NITRITES, URINE NEGATIVE (Neg); OCCULT BLOOD,URINE LARGE (Neg); PH,URINE 6.5 (4.8-8.0); PROTEIN,URINE TRACE mg/dl (Neg); UROBILINOGEN,URINE 0.2 E.U/dL (0.2-1.0)
[2018-10-08 14:19] LABS: UA COLLECTION TYPE CLN CATCH MIDSTREAM
[2018-10-08 14:35] LABS: AMORPHOUS URATES 2+
[2018-10-08 14:39] VITALS: BP 160/91
[2018-10-08 14:41] LABS: BACTERIA,URINE 3+ /HPF (Neg); SQUAMOUS EPITHELIAL CELL,UR MODERATE /LPF (FEW)
[2018-10-08] MEDS ORDERED: CefTRIAXone/D5W-Rocephin 1gm 50 ML IV ONE (14:45)
[2018-10-08] MEDS ORDERED: NITR100C6 PO (16:53)
[2018-10-08] MEDS ORDERED: BISA-155 PO (16:53)
[2018-10-08] MEDS ORDERED: ONDA8TAB6 PO (16:53)
== END 2018-10-08 17:17 | disposition home or self-care (01) ==
LOC: ER 11:59
DX: K52.89 Other specified noninfective gastroenteritis and colitis (principal); N39.0 Urinary tract infection, site not specified; K59.00 Constipation, unspecified; I25.10 Atherosclerotic heart disease of native coronary artery without angina pectoris; I10 Essential (primary) hypertension; I25.2 Old myocardial infarction; J44.9 Chronic obstructive pulmonary disease, unspecified; K21.9 Gastro-esophageal reflux disease without esophagitis; G89.29 Other chronic pain; F41.9 Anxiety disorder, unspecified; F32.9 Major depressive disorder, single episode, unspecified; Z98.61 Coronary angioplasty status; Z90.710 Acquired absence of both cervix and uterus; Z98.890 Other specified postprocedural states; Z88.0 Allergy status to penicillin; Z88.5 Allergy status to narcotic agent; Z79.82 Long term (current) use of aspirin; Z79.899 Other long term (current) drug therapy
CPT/HCPCS: 36415; 74176; 80053; 81001; 82150; 83690; 84484; 85025; 85610; 87088; 87186; 96365; 96375; 99284; J0696; J2405; J3010; J7030; 87077